=== PATIENT | female | born 1960 | race Caucasian/White ===

== ENCOUNTER 2024-12-17 06:05 | Day surgery (SDC) | payer OTHER ==
[~2024-12-17] VITALS: Ht 170.2 cm; Wt 67.0 kg
[~2024-12-17 06:05] MED LIST: ASPI325EC PO; ASPI81CH PO; Advil200 M1 PO; CEPH500 PO; CRUTCH2 XX; Colace100 MG PO; HYDACE10B PO; Percocet 5-3251 EACH PO
[2024-12-17] MEDS ORDERED: CeFAZolin Sodium 2,000 MG VIAL ONE (06:12)
[2024-12-17] MEDS ORDERED: NS 0 ML IV ONE (06:13)
[2024-12-17] MEDS ORDERED: Dexmedetomidine HCL 200 MCG / 2 ML ONE (06:40)
[2024-12-17] MEDS ORDERED: Ropivacaine 0.2% HCl/Pf 2 MG/ML 20ML Vial ONE (06:41)
[2024-12-17] MEDS ORDERED: Dexamethasone Sod Phos 10 MG/ML 1ML VIAL ONE (06:43)
[2024-12-17] MEDS ORDERED: Ondansetron HCl 2 MG / ML 2ML Vial ONE ×2 (06:43→07:33)
[2024-12-17] MEDS ORDERED: Bupivacaine 0.5% W/EPI 1:200000 SDV 30 ML Vial ONE (06:45)
[2024-12-17] MEDS ORDERED: FentaNYL Citrate 50 MCG/ML 2 ML Injection ONE (06:46)
--- NOTE | 2024-12-17 07:21 | NUR ---
12/17/24 0721 Fabiola Gongora TIMEOUT FOR NERVE BLOCK IN PRE-OP WITH FABIOLA MILLER, RN, AND DUANE SANCHEZ AT [id number]. START TIME 07. END TIME 07.
[2024-12-17] MEDS ORDERED: Metoclopramide HCl 5MG / ML 2ML Vial ONE (07:33)
[2024-12-17] MEDS ORDERED: Ketorolac Tromethamine 30mg Vial ONE (07:58)
--- NOTE | 2024-12-17 08:14 | NUR ---
12/17/24 0814 Elizabeth Sethi 1MG EPI ADDED TO FIRST BAG OF LR USED FOR JOINT IRRIGATION.
[2024-12-17 11:20] VITALS: BP 109/63
== END 2024-12-17 11:15 | disposition home or self-care (01) ==
LOC: ORSCSDS 06:05
PROVIDERS: Podiatrist Foot & Ankle Surgery
PROC: 0SGG44Z Fusion of Left Ankle Joint with Internal Fixation Device, Percutaneous Endoscopic Approach (ICD-10-PCS; principal; 2024-12-17 07:30)
PROC: 0QP104Z Removal of Internal Fixation Device from Sacrum, Open Approach (ICD-10-PCS; principal; 2024-12-17 07:30)
DX: S82.842A Displaced bimalleolar fracture of left lower leg, initial encounter for closed fracture (principal); F17.210 Nicotine dependence, cigarettes, uncomplicated; W18.2XXA Fall in (into) shower or empty bathtub, initial encounter
CPT/HCPCS: A6253; C1713; C1734; C1769; J0165; J0690; J1100; J1885; J2405; J2704; J2765; J2795; J3010; J7120